=== PATIENT | female | born 1985 | race African-American/Black ===

== ENCOUNTER 2018-01-20 14:29 | Inpatient (IN) | payer OTHER ==
[~2018-01-20] VITALS: Ht 157.5 cm; Wt 73.5 kg
[2018-01-20 15:04] LABS: ABSOLUTE BASOPHIL COUNT 0 /CUMM (0.0-0.2); ABSOLUTE EOSINOPHIL COUNT 0 /CUMM (0.0-0.7); ABSOLUTE GRANULOCYTE CT 6.6 /CUMM (1.4-6.5); ABSOLUTE LYMPH COUNT 1.4 /CUMM (1.2-3.4); ABSOLUTE MONOCYTE COUNT 0.5 /CUMM (0.10-0.60); BASOPHIL % 0.1 % (0.0-2.0); EOSINOPHIL % 0.3 % (0-5); GRANULOCYTE % 77.4 % (42.2-75.2); HEMATOCRIT 33.4 % (37-47); MEAN CORPUSCULAR HGB 26.3 PG (27.0-31.0); MEAN CORPUSCULAR VOLUME 79.8 FL (81.0-99.0); RBC DISTRIBUTION WIDTH 16.4 % (11.5-14.5); RED BLOOD CELL CT 4.19 /CUMM (4.20-5.40)
[2018-01-20 15:26] LABS: WHITE BLOOD CELL COUNT 9.9 /CUMM (4.8-10.8)
--- NOTE | 2018-01-20 17:06 | Labor & Delivery Summary ---
Delivery Summary Vaginal Delivery: Vaginal: vertex Episiotomy/Lacerations: Episiotomy/Lacerations: none Type: 2nd degree fourchette Repair: 2-0 vicryl Anesthesia: local Placenta: Placenta: spontanteous, normal, 3 vessel Anesthesia: Nitrous oxide, 5 cc local block Apgars - 1 Min: 9 Apgars - 5 Min: 9 Additional Comments: Rectum intact No other lacerations Fundus firm. Oxytocin given per protocol EBL 300 cc Partner present at delivery OA at delivery No nuchal cord and shoulder passed spontaneously Went from 7 to 9 to fully dilated after arom. Did get NO gas. Female
[2018-01-20 17:27] VITALS: BP 98/55
--- NOTE | 2018-01-20 17:36 | History & Physical ---
General Information and HPI MD Statement: I have seen and personally examined BROCK TUCKER and documented this H&P. The patient is a 32 year old female at 38 weeks and 6 days gestation who presented with a chief complaint of contractions that began at 12 noon today. Source of Information: patient, old records Exam Limitations: no limitations History of Present Illness: Patient is a Para 4 with complicated by history of treated TB and social issues of living in prison who presented via EMS with complaints of contractions. 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 History: none Past Pregnancies Past Pregnancies: 1 Date of Delivery: 08/27/04 Gestational Age: 39 Type of Delivery: vaginal Complications: none Past Pregnancies: 2 Date of Delivery: 07/24/05 Gestational Age: 40 Type of Delivery: vaginal Complications: none Past Pregnancies: 3 Date of Delivery: 10/04/14 Gestational Age: 39 Type of Delivery: vaginal Complications: none Past Pregnancies: 4 Date of Delivery: 12/14/15 Gestational Age: 39 Type of Delivery: vaginal Complications: none Medical History Blood Transfusion Hx: No Neurological: NONE EENT: NONE Cardiovascular: NONE Respiratory: History of LTBI Gastrointestinal: NONE Hepatic: NONE Renal: NONE Musculoskeletal: NONE Psychiatric: NONE Endocrine: NONE Blood Disorders: NONE Cancer(s): NONE SET OFF BLOCKER/Reproductive: chlamydia Other Medical Hx: NA Surgical History Pertinent Surgical History: none Past Family/Social History Psychosocial History Where do you live? Other (Detention) Who Do You Live With? child Primary Language: Spanish Smoking Status: Never Smoked ETOH Use: denies use Illicit Drug Use: denies illicit drug use Living Will? 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 EENTM: Denies: no symptoms. Cardiovascular: Denies: no symptoms. Respiratory: Denies: no symptoms. GI: Denies: no symptoms. Genitourinary: Denies: no symptoms. Musculoskeletal: Denies: no symptoms. Skin: Denies: no symptoms. Neurological/Psychological: Denies: no symptoms. Hematologic/Endocrine: Denies: no symptoms. Immunologic/Allergic: Denies: no symptoms. All Other Systems: Reviewed and Negative Date of LMP: 04/23/17 Post Menopausal: No Date of Last Pap Smear: 04/15/16 Exam & Diagnostic Data Last 24 Hrs of Vital Signs/I&O See ob flow sheet Obstetric Exam Wgt Gained During : 19 lbs Pelvimetry: Gynecoid Dilation (cm): 7 Effacement (%): 100 Station: -1 Membranes: intact Fluid: intact Fundal Height (cm): 38 Multiple Gestation? No Contractions: Q2-3 Infant #1 - FHR Baseline: 140 Category: 1 Estimated Weight: 3000 grams Presentation: Cephalic Patient for Induction? No Cutler Score Cutler Score Response Value Cervix Position: posterior 0 Cervix Consistency: soft 2 Cervix Effacement: >80% 3 Cervix Dilation: >5 cm 3 Cervix Station: -1 2 Total 10 Physical Exam General Appearance Alert, Oriented X3, Cooperative, Moderate Distress Skin No Rashes HEENT Atraumatic, PERRLA Neck Supple Cardiovascular Regular Rate Lungs Clear to Auscultation, Normal Air Movement Abdomen Normal Bowel Sounds, Soft Neurological Normal Gait, Normal Speech, Strength at 5/5 X4 Ext, Normal Tone, Sensation Intact, Cranial Nerves 3-12 NL, Reflexes 2+ Extremities No Edema Vascular Pulses Symmetrical Breasts Breast appear nl Reproductive (FEMALE) Normal female genitalia Rectal No Hemorrhoids Labs Blood Type & Rh: A positive Antibody Screen: negative Hct/Hgb & Platelets #1: 35.3/167 Hct/Hgb & Platelets #2: 31.7/140 Rubella: Immune VDRL #1: negative VDRL #2: negative HbsAg: negative HIV #1: negative HIV #2 negative 1 Hr P 3 Hr PG: na Group B Strep: negative Initial Ultrasound: normal Anatomy Ultrasound: level 2 wnl at [facility] Ultrasound for EFW: 2407 grams on 12/23/17 Genetic Testing: NIPT and carrier screen negative Last 24 Hrs of Labs/Adam: Laboratory Tests 01/20/18 1442: RPR Titer/FTA Pending, Rubella Screen Pending 01/20/18 1442: Glucose 69, Hemoglobin A1c 5.5, CBC w Diff NO MAN DIFF REQ, RBC 4.19 L, MCV 79.8 L, MCH 26.3 L, MCHC 33.0, RDW 16.4 H, Gran % 77.4 H, Lymphocytes % 16.3 L, Monocytes % 5.9, Eosinophils % 0.3, Basophils % 0.1, Absolute Granulocytes 6.6 H, Absolute Lymphocytes 1.4, Absolute Monocytes 0.5, Absolute Eosinophils 0 , Absolute Basophils 0, Hep Bs Antigen NONREACTIVE, HIV 1&2 Ab Western Blot NONREACTIVE, Urine Opiates Screen < 100, Methadone Screen < 40, Barbiturate Screen < 60, Ur Phencyclidine Scrn < 6.00, Amphetamines Screen < 100, U Benzodiazepines Scrn < 85, Urine Cocaine Screen < 50, Urine Cannabis Screen < 5.00, Urine Color YEL, Urine Clarity CLEAR, Urine pH 7.0, Ur Specific Campbell 1.020, Urine Protein NEG, Urine Ketones NEG, Urine Nitrite NEG, Urine Bilirubin NEG, Urine Urobilinogen 1.0, Ur Leukocyte Esterase NEG, Ur Microscopic EXAM NOT REQUIRED, Urine Hemoglobin NEG, Urine Glucose NEG Assessment/Plan Assessment/Plan: 32 year old female with complicated by history of LTBI (treated 2012) and living in prison and noncustody of several of her children who presented in early labor and then found to be 5 cm. While awaiting epidural patient was 7 cm. She was subsequently ruptured of clear fluid and progressed to 9 cm. She was consented for NO gas for which alleviated her pain and she was able to progress to fully and delivery uneventfully. Mild uterine atony which responded to methergine and oxytocin. Plan Admit and routine care Discussed IUD for . I will place at follow up in 6 weeks with 4 week follow up. Tdap prior to discharge Pain meds as needed Discussed breast feeding. She will try again this time. History of treated LTBI with negative CXR and no symptoms. As Ranked By This Provider Problem List: 1. Personal history of tuberculosis 2. state Core Measures Venous Thromboembolism VTE Risk Factors / No Mechanical VTE Prophylaxis d/t N/A MechProphylax Ordered No VTE Pharm Prophylaxis d/t Other (ambulation) Attending MD Review Statement Attending Statement Attending MD Statement: examined this patient, discussed with family, discussed w/nursing Attending Assessment/Plan: As outlined
[2018-01-20] MEDS ORDERED: IBUPROFEN800 M1 PO (17:38)
[2018-01-21 09:12] LABS: ABSOLUTE BASOPHIL COUNT 0 /CUMM (0.0-0.2); ABSOLUTE EOSINOPHIL COUNT 0.1 /CUMM (0.0-0.7); ABSOLUTE GRANULOCYTE CT 8.9 /CUMM (1.4-6.5); ABSOLUTE LYMPH COUNT 1.7 /CUMM (1.2-3.4); ABSOLUTE MONOCYTE COUNT 0.7 /CUMM (0.10-0.60); BASOPHIL % 0.2 % (0.0-2.0); EOSINOPHIL % 0.5 % (0-5); GRANULOCYTE % 78.1 % (42.2-75.2); HEMATOCRIT 31.3 % (37-47); MEAN CORPUSCULAR HGB 26.5 PG (27.0-31.0); MEAN CORPUSCULAR HGB CONC 33.2 G/DL (33.0-37.0); MEAN CORPUSCULAR VOLUME 79.8 FL (81.0-99.0); MEAN PLATELET VOLUME 9.8 FL (7.4-10.4); RBC DISTRIBUTION WIDTH 16.3 % (11.5-14.5); RED BLOOD CELL CT 3.92 /CUMM (4.20-5.40); WHITE BLOOD CELL COUNT 11.4 /CUMM (4.8-10.8)
--- NOTE | 2018-01-21 09:23 | PN- OBGYN ---
Surgical Brief Attending Note Brief Attending Note: Seen and evaluated Doing well Minor cramps and vaginal discomfort but pain meds helping No nausea nor vomiting Denies heavy vaginal bleeding Not breast feeding Wants to go home today VSS Aox3 Abdomen soft and fundus firm No edema A/P PPD #1 s/p vaginal . History of LTBI and treated. 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 Discussed case with Pepper. She has an open DCF case but per Pepper SW that patient is in compliance with same. Breast feeding counseling provided Pain mgmt strategy reviewed and recommend Tucks pads per vagina Follow up cbc re platelets. No active bleeding noted Tdap for today Follow up CBC in 2-4 days and then 4 weeks to myself for care. Discussed IUD for contraception and she is open to same. DC home pending Peds clearance. Ample time given for patient and partner re questions.
[2018-01-21 10:39] LABS: ABSOLUTE BASOPHIL COUNT 0 /CUMM (0.0-0.2); ABSOLUTE EOSINOPHIL COUNT 0 /CUMM (0.0-0.7); ABSOLUTE GRANULOCYTE CT 8.4 /CUMM (1.4-6.5); ABSOLUTE LYMPH COUNT 1.5 /CUMM (1.2-3.4); ABSOLUTE MONOCYTE COUNT 0.8 /CUMM (0.10-0.60); BASOPHIL % 0.3 % (0.0-2.0); EOSINOPHIL % 0.4 % (0-5); GRANULOCYTE % 78.5 % (42.2-75.2); HEMATOCRIT 31.2 % (37-47); MEAN CORPUSCULAR HGB 26.6 PG (27.0-31.0); MEAN CORPUSCULAR HGB CONC 32.9 G/DL (33.0-37.0); MEAN CORPUSCULAR VOLUME 80.8 FL (81.0-99.0); MEAN PLATELET VOLUME 9.3 FL (7.4-10.4); PLATELET COUNT 224 /CUMM (130-400); RBC DISTRIBUTION WIDTH 16.8 % (11.5-14.5); RED BLOOD CELL CT 3.86 /CUMM (4.20-5.40); WHITE BLOOD CELL COUNT 10.8 /CUMM (4.8-10.8)
== END 2018-01-21 19:00 | DRG 560 ==
LOC: CBCO 14:29 → GNO 16:10
PROVIDERS: Obstetrics & Gynecology; Specialist
PROC: 0KQM0ZZ Repair Perineum Muscle, Open Approach (ICD-10-PCS; principal; 2018-01-20)
PROC: 10E0XZZ Delivery of Products of Conception, External Approach (ICD-10-PCS; 2018-01-20)
DX: O70.1 Second degree perineal laceration during delivery (principal); Z3A.38 38 weeks gestation of pregnancy; Z37.0 Single live birth; Z86.11 Personal history of tuberculosis; Z59.0 Homelessness
CPT/HCPCS: GNOS; 80307; 81003; 87389; G0463; J1885; J2210; J3490; J7120